=== PATIENT | male | born 1995 | race Hispanic/Latino ===

== ENCOUNTER 2017-08-12 19:31 | Emergency (ER) | payer SELFPAY ==
[2017-08-12 21:26] VITALS: BP 110/71
[2017-08-13] MEDS ORDERED: BOOSTRIX IM ONE (00:58)
[2017-08-13] MEDS ORDERED: NORCO 7.5/325 PO ONE (00:58)
--- NOTE | 2017-08-13 01:01 | Emergency Department Report ---
- General Chief Complaint: Wound/Laceration Stated Complaint: RIGHT LEG LACERATION Time Seen by Provider: 08/13/17 00:57 Source: patient Mode of arrival: Ambulatory Limitations: No Limitations - History of Present Illness Initial Comments: 21-year-old male comes in for a cut on his right lower leg. Patient reports he was planned basketball and ran into a metal pole that was sticking up from the bottom of the ground that was cut off. Patient's reports his last tetanus over 5 years. He has no past medical history currently takes no medication and has no known drug allergies -: This evening Extremity Location: Right: Lower Leg (6-7 cm in length) Place: outdoors Context: accidental Associated Symptoms: none - Related Data Previous Rx's Medication Instructions Recorded Last Taken Type Ibuprofen [Motrin 600 MG tab] 600 mg PO Q8H PRN #15 tablet 08/13/17 Unknown Rx Allergies Allergy/AdvReac Type Severity Reaction Status Date / Time No Known Allergies Allergy Unverified 08/12/17 21:27 ED Review of Systems ROS: Stated complaint: RIGHT LEG LACERATION Other details as noted in HPI Constitutional: denies: chills, fever Eyes: denies: eye pain, eye discharge, vision change ENT: denies: ear pain, throat pain Respiratory: denies: cough, shortness of breath, wheezing Cardiovascular: denies: chest pain, palpitations Endocrine: no symptoms reported Gastrointestinal: denies: abdominal pain, nausea, diarrhea Genitourinary: denies: urgency, dysuria Musculoskeletal: denies: back pain, joint swelling, arthralgia Skin: other (cut to right lower leg) Neurological: denies: headache, weakness, paresthesias Psychiatric: denies: anxiety, depression Hematological/Lymphatic: denies: easy bleeding, easy bruising ED Past Medical Hx - Past Medical History Previous Medical History?: No - Surgical History Past Surgical History?: No - Social History Smoking Status: Current Every Day Smoker Substance Use Type: Alcohol, Marijuana - Medications Home Medications: Home Medications Medication Instructions Recorded Confirmed Last Taken Type Ibuprofen [Motrin 600 MG tab] 600 mg PO Q8H PRN #15 tablet 08/13/17 Unknown Rx ED Physical Exam - General Limitations: No Limitations General appearance: alert, in no apparent distress - Head Head exam: Present: atraumatic, normocephalic - Eye Eye exam: Present: normal appearance - ENT ENT exam: Present: mucous membranes moist - Neck Neck exam: Present: normal inspection - Respiratory Respiratory exam: Present: normal lung sounds bilaterally. Absent: respiratory distress - Cardiovascular Cardiovascular Exam: Present: regular rate, normal rhythm. Absent: systolic murmur, diastolic murmur, rubs, gallop - Extremities Exam Extremities exam: Present: full ROM, other (6-7 cm laceration to the right lower leg) - Back Exam Back exam: Present: normal inspection - Neurological Exam Neurological exam: Present: alert, oriented X3 - Psychiatric Psychiatric exam: Present: normal affect, normal mood - Skin Skin exam: Present: warm, other (right lower leg laceration 6-7 cm no active bleeding) ED Course Vital Signs 08/12/17 21:24 Temperature 98.1 F Pulse Rate 68 Respiratory 18 Rate Blood Pressure 110/71 O2 Sat by Pulse 99 Oximetry - Laceration /Wound Repair Right Leg Wound Location: lower extremity Wound's Depth, Shape: linear Wound Explored: clean Irrigated w/ Saline (ccs): 150 Betadine Prep?: Yes Anesthesia: 1% Lidocaine Volume Anesthetic (ccs): 10 Wound Debrided: minimal Wound Repaired With: sutures Suture Size/Type: 3:0 Number of Sutures: 8 Sterile Dressing Applied?: Yes Progress: Patient tolerated well ED Medical Decision Making - Medical Decision Making Patient's been evaluated by this provider fast track. Discussed the patient will need to give him a tetanus shot as well as suture his leg up. We will give patient [place] for pain suture set up. Discussed the patient is to return 7 -10 days to have sutures removed. He is return sooner if he notices any purulent discharge swelling. Patient verbalized understanding. Critical care attestation.: If time is entered above; I have spent that time in minutes in the direct care of this critically ill patient, excluding procedure time. ED Disposition Clinical Impression: Laceration of lower leg without complication Qualifiers: Encounter type: initial encounter Laterality: right Qualified Code(s): S81.811A - Laceration without foreign body, right lower leg, initial encounter Disposition: - TO HOME OR SELFCARE Is pt being admited?: No Does the pt Need Aspirin: No Condition: Stable Instructions: Suture Care (ED), Laceration (ED) Additional Instructions: Please keep wound clean and dry. Please return in his 7-10 days for suture removal. Please return sooner any signs of infection such as swelling redness purulent discharge from the leg. Prescriptions: Ibuprofen [Motrin 600 MG tab] 600 mg PO Q8H PRN #15 tablet PRN Reason: Pain Referrals: PRIMARY CARE, [Primary Care Provider] - 3-5 Days Forms: Work/School Release Form(ED)
== END 2017-08-13 02:35 | disposition home or self-care (01) ==
LOC: ED 19:31
DX: S81.811A Laceration without foreign body, right lower leg, initial encounter (principal); F17.200 Nicotine dependence, unspecified, uncomplicated; F12.10 Cannabis abuse, uncomplicated; W45.8XXA Other foreign body or object entering through skin, initial encounter; Y93.67 Activity, basketball; Y92.89 Other specified places as the place of occurrence of the external cause; Y99.8 Other external cause status
CPT/HCPCS: 90471; 90715